=== PATIENT | male | born 1990 | race Asian ===

== ENCOUNTER 2019-11-28 00:51 | Emergency (ER) | payer BC, OTHER ==
--- NOTE | 2019-11-28 00:57 | ED Physician Documentation ---
History of Present Illness - Stated complaint Stated Complaint: ABD PX - History obtained from History obtained from: Patient - Additonal information Additional information: Patient is a 29-year-old male presents with some diffuse lower abdominal discomfort for the last 48 hours that is causing severe pain that is been coming and going without hematuria he reports nausea but no vomiting. He denies fevers or syncope denies chest pain or shortness of breath he reports he is otherwise healthy and up-to-date on all of his immunizations and denies any chronic medical problems. Denies any history of previous abdominal surgeries. Denies any testicular pain or genital pain. Review of Systems Constitutional: reports: Reviewed and negative Eyes: reports: Reviewed and negative Ears: reports: Reviewed and negative Nose: reports: Reviewed and negative Throat: reports: Reviewed and negative Cardiac: reports: Reviewed and negative Respiratory: reports: Reviewed and negative GI: reports: Abdominal Pain, Nausea : reports: Reviewed and negative Skin: reports: Reviewed and negative Musculoskeletal: reports: Reviewed and negative Neurologic: reports: Reviewed and negative Psychiatric: reports: Reviewed and negative Endocrine: reports: Reviewed and negative Immunocompromised: reports: Reviewed and negative PD PAST MEDICAL HISTORY - Present Medications Home Medications: Ambulatory Orders Medication Instructions Recorded Confirmed Amox/Clav 875/125 [Augmentin] 1 each PO Q12H 10 Days #20 tablet 11/28/19 Ondansetron Odt [Zofran Odt] 4 mg TL Q6H PRN #10 tablet 11/28/19 - Allergies Allergies/Adverse Reactions: Allergies Allergy/AdvReac Type Severity Reaction Status Date / Time No Known Drug Allergies Allergy Verified 11/28/19 00:59 PD ED PE NORMAL - Vitals Vital signs reviewed: Yes - General General: Alert and oriented X 3, No acute distress, Well developed/nourished - HEENT HEENT: Atraumatic, PERRL, EOMI, Ears normal, Moist mucous membranes, Pharynx benign, Dentition benign - Neck Neck: Supple, no meningeal sign, No bony TTP, No adenopathy, Thyroid normal, No JVD, No bruit - Cardiac Cardiac: RRR, No murmur, No gallop, No rub, Strong equal pulses - Respiratory Respiratory: No respiratory distress, Clear bilaterally - Abdomen Abdomen: Normal bowel sounds, Soft, Non distended, No organomegaly, Other (diffuse ttp to the lower abdomen, negative Brown's negative Rovsing's negative psoas negative McBurney's ) - Male Male : Deferred - Rectal Rectal: Deferred - Back Back: No CVA TTP, No spinal TTP - Derm Derm: Normal color, Warm and dry, No rash - Extremities Extremities: No deformity, No tenderness to palpate, Normal ROM s pain, No edema, No calf tenderness / cord - Neuro Neuro: Alert and oriented X 3, 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, No motor deficit, No sensory deficit, Normal speech - Psych Psych: Normal mood, Normal affect Results - Vitals Vitals: Vital Signs - 24 hr 11/28/19 11/28/19 11/28/19 00:58 02:28 03:03 Temperature 37.3 C Heart Rate 99 88 87 Respiratory 18 18 18 Rate Blood Pressure 123/78 118/72 114/80 O2 Saturation 98 98 98 Oxygen O2 Source Room air - Labs Labs: Laboratory Tests 11/28/19 11/28/19 11/28/19 01:00 01:30 01:30 WBC 13.3 H RBC 5.13 Hgb 16.1 Hct 46.6 MCV 90.8 MCH 31.4 H MCHC 34.5 RDW 12.8 Plt Count 300 MPV 9.3 Neut # (Auto) 8.9 H Lymph # (Auto) 2.6 [place] # (Auto) 1.4 H Eos # (Auto) 0.3 Baso # (Auto) 0.1 Absolute Nucleated RBC 0.00 Nucleated RBC % 0.0 PT 12.9 H INR 1.1 APTT 30.8 Sodium Potassium Chloride Carbon Dioxide Anion Gap BUN Creatinine Estimated GFR (MDRD) Glucose Lactic Acid Calcium Total Bilirubin AST ALT Alkaline Phosphatase Total Creatine Kinase Total Protein Albumin Globulin Albumin/Globulin Ratio Lipase Urine Color YELLOW Urine Clarity CLEAR Urine pH 6.0 Ur Specific [place] 1.020 Urine Protein NEGATIVE Urine Glucose (UA) NEGATIVE Urine Ketones NEGATIVE Urine Occult Blood TRACE-INTA Urine Nitrite NEGATIVE Urine Bilirubin NEGATIVE Urine Urobilinogen 0.2 (NORMAL) Ur Leukocyte Esterase NEGATIVE Ur Microscopic Review NOT INDICATED Urine Culture Comments NOT INDICATED 11/28/19 11/28/19 01:30 01:30 WBC RBC Hgb Hct MCV MCH MCHC RDW Plt Count MPV Neut # (Auto) Lymph # (Auto) [place] # (Auto) Eos # (Auto) Baso # (Auto) Absolute Nucleated RBC Nucleated RBC % PT INR APTT Sodium 137 Potassium 3.4 L Chloride 102 Carbon Dioxide 25 Anion Gap 10.0 BUN 10 Creatinine 1.0 Estimated GFR (MDRD) 87 L Glucose 89 Lactic Acid 1.1 Calcium 9.0 Total Bilirubin 1.1 H AST 28 ALT 75 H Alkaline Phosphatase 81 Total Creatine Kinase 85 Total Protein 8.0 Albumin 4.9 Globulin 3.1 Albumin/Globulin Ratio 1.6 Lipase 30 Urine Color Urine Clarity Urine pH Ur Specific [place] Urine Protein Urine Glucose (UA) Urine Ketones Urine Occult Blood Urine Nitrite Urine Bilirubin Urine Urobilinogen Ur Leukocyte Esterase Ur Microscopic Review Urine Culture Comments PD MEDICAL DECISION MAKING - ED course Complexity details: reviewed results, re-evaluated patient, considered differential (Ureterolithiasis, appendicitis, diverticulitis), d/w patient, d/w family ED course: CT scan consistent with diverticulitis first dose of Augmentin given here prescription provided for Augmentin 2 times daily for the next 10 days I would like this patient to follow-up with his medical provider on Saturday and also consider follow-up with gastroenterology. Departure - Departure Disposition: Home, Self Care Clinical Impression: Diverticulitis Condition: Stable Instructions: ED Diverticulitis Follow-Up: your, doctor [Other] - 11/30/19 Prescriptions: Amox/Clav 875/125 [Augmentin] 1 each PO Q12H 10 Days #20 tablet Ondansetron Odt [Zofran Odt] 4 mg TL Q6H PRN #10 tablet PRN Reason: Nausea / Vomiting Comments: Take antibiotics as directed. Please follow-up with your primary care provider on Saturday for recheck. Return for worsening pain fevers or any concerns. Discharge Date/Time: 11/28/19 03:13
[2019-11-28] MEDS ORDERED: MORPHINE 2 MG/ML CARPUJECT IVP STA (01:18)
[2019-11-28] MEDS ORDERED: SODIUM CHLORIDE 0.9% 1,000 ML IV STA (01:18)
[2019-11-28] MEDS ORDERED: KETOROLAC 30 MG/ML VIAL IVP STA (01:18)
[2019-11-28] MEDS ORDERED: ONDANSETRON 4 MG/2 ML VIAL IVP STA (01:18)
[2019-11-28 01:20] LABS: BILIRUBIN,URINE NEGATIVE (NEGATIVE); CLARITY,URINE CLEAR (CLEAR); GLUCOSE, URINE (UA) NEGATIVE (NEGATIVE); KETONES,URINE (UA) NEGATIVE (NEGATIVE); LEUKOCYTE ESTERASE, URINE NEGATIVE (NEGATIVE); NITRITE,URINE NEGATIVE (NEGATIVE); OCCULT BLOOD,URINE TRACE-INTA (NEGATIVE); PROTEIN,URINE NEGATIVE (NEGATIVE); UROBILINOGEN,URINE 0.2 (NORMAL) E.U./dL (NORMAL)
[2019-11-28 01:48] LABS: BASOPHILS # (AUTO) 0.1 10^3/uL (0.0-0.1); BASOPHILS % (AUTO) 0.5 %; EOSINOPHILS # (AUTO) 0.3 10^3/uL (0.0-0.7); EOSINOPHILS % (AUTO) 2.1 %; HGB - HEMOGLOBIN 16.1 g/dL (14.0-18.0); LYMPHOCYTES # (AUTO) 2.6 10^3/uL (1.5-3.5); LYMPHOCYTES % (AUTO) 19.6 %; MEAN CORPUSCULAR HEMOGLOBIN 31.4 pg (27.0-31.0); MEAN CORPUSCULAR HGB CONC 34.5 g/dL (32.0-36.0); MEAN CORPUSCULAR VOLUME 90.8 fL (80.0-94.0); MEAN PLATELET VOLUME 9.3 fL (7.4-11.4); MONOCYTES # (AUTO) 1.4 10^3/uL (0.0-1.0); MONOCYTES % (AUTO) 10.2 %; NEUTROPHILS # (AUTO) 8.9 10^3/uL (1.5-6.6); PLT - PLATELET COUNT 300 10^3/uL (130-450); RED BLOOD COUNT 5.13 10^6/uL (4.70-6.10); RED CELL DISTRIBUTION WIDTH 12.8 % (12.0-15.0); WHITE BLOOD COUNT 13.3 x10^3/uL (4.8-10.8)
[2019-11-28 01:55] LABS: INR 1.1 (0.8-1.2); PT - PROTHROMBIN TIME 12.9 secs (9.9-12.6)
[2019-11-28 02:00] LABS: ALBUMIN 4.9 g/dL (3.2-5.5); ALBUMIN/GLOBULIN RATIO 1.6 (1.0-2.2); BILIRUBIN,TOTAL 1.1 mg/dL (0.2-1.0)
[2019-11-28 02:02] LABS: PARTIAL THROMBOPLASTIN TIME 30.8 secs (24.9-33.3)
[2019-11-28] MEDS ORDERED: IOVERSOL 320 100 ML VIAL IVP ONE ×2 (02:04→02:34)
[2019-11-28] MEDS ORDERED: AMOX/CLAV 875 MG/125 MG TABLET PO STA (02:57)
[2019-11-28 03:03] VITALS: BP 114/80
--- NOTE | 2019-11-28 07:47 | CT Report ---
PROCEDURE: Abdomen/Pelvis W INDICATIONS: RLQ ABD PAIN CONTRAST: IV CONTRAST: Optiray 320 ml: 100 PO CONTRAST: *NO PO CONTRAST TECHNIQUE: After the administration of 100 contrast, 5 mm thick sections acquired from the diaphragms to the sym physis. 5 mm thick coronal and sagittal reformats were acquired. For radiation dose reduction, the following was used: automated exposure control, adjustment of mA and/or kV according to patient size . COMPARISON: None. FINDINGS: Image quality: Excellent. ABDOMEN: Lung bases: Lung bases are clear. Heart size is normal. Solid organs: Liver and spleen are normal in size and enhancement. Hepatic steatosis. Gallbladder i s unremarkable. Biliary system is non dilated. Pancreas enhances normally. No adrenal nodules. Ki dneys demonstrate normal size and enhancement, without hydronephrosis. Peritoneum and bowel: Minimal diverticulosis of the ascending colon. There is peridiverticular infla mmation of the proximal ascending colon and cecum without free air or abscess formation. Adjacent cande endix appears normal. Terminal ileum appears normal. Remainder the visualized bowel loops demonstrate normal wall thickness and caliber. No free fluid or air. Nodes and vessels: No retroperitoneal or mesenteric adenopathy by size criteria. Aorta and inferior vena cava are normal in size. Miscellaneous: No ventral hernias. PELVIS: Genitourinary: Bladder wall thickness is normal. Miscellaneous: No inguinal hernias or adenopathy. Bones: No suspicious bony lesions. No vertebral body compression fractures. IMPRESSION: 1. Cecal and proximal ascending colon inflammatory stranding likely related to acute diverticulitis v ersus colitis. No free air or organized fluid collection. 2. Normal appendix. 3. Diffuse hepatic steatosis. No significant discrepancy with initial interpretation by overnight radiologist. Reviewed by: Rodrigue Moeller MD on 11/28/2019 7:45 AM PDT Approved by: Rodrigue Moeller MD on 11/28/2019 7:45 AM PDT Station ID: [id number]
== END 2019-11-28 03:13 | disposition home or self-care (01) ==
LOC: ED 00:51
DX: K57.32 Diverticulitis of large intestine without perforation or abscess without bleeding (principal)
CPT/HCPCS: 36415; 74177; 80053; 81003; 82550; 83605; 83690; 85025; 85610; 85730; 96361; 96374; 99284; A9270; Q9967; 81001; 87086

== ENCOUNTER 2020-06-25 13:24 | Outpatient (CLI) | payer OTHER | END 2020-06-25 13:25 | disposition home or self-care (01) | LOC: LAB.N 13:24 | PROVIDERS: ATTEND Obstetrics & Gynecology | DX: Z13.0 Encounter for screening for diseases of the blood and blood-forming organs and certain disorders involving the immune mechanism (principal) | CPT/HCPCS: 36415; 81599; 82728; 83021; 85014; 85018; 85041 ==

== ENCOUNTER 2022-08-07 10:01 | Outpatient (CLI) | payer OTHER ==
--- NOTE | 2022-08-07 11:50 | XRAY Report ---
PROCEDURE: Toe(s) LT INDICATIONS: PAIN OF TOE OF LEFT FOOT. TECHNIQUE: 3 views of the first toe(s) acquired. COMPARISON: None FINDINGS: Bones: No acute fracture or dislocation. Slight valgus alignment at the first toe. Soft tissues: No suspicious calcifications. IMPRESSION: No displaced fracture. No dislocation. If there is high concern for further derangement, consider MRI evaluation. Reviewed by: Miguel Bailon MD on 08/07/2022 11:49 AM PDT Approved by: Miguel Bailon MD on 08/07/2022 11:49 AM PDT Station ID: [id number]
== END 2022-08-07 23:59 | disposition home or self-care (01) ==
LOC: DI.N 10:01
PROVIDERS: ATTEND Physician Assistant
DX: M79.675 Pain in left toe(s) (principal)
CPT/HCPCS: 73660